=== PATIENT | female | born 1990 | race African-American/Black ===

== ENCOUNTER 2017-05-04 13:31 | Emergency (ER) | payer OTHER ==
[~2017-05-04] VITALS: Ht 162.6 cm; Wt 49.9 kg
[2017-05-04] MEDS ORDERED: NAPROSYN500 MG PO (15:05)
[2017-05-04] MEDS ORDERED: NORFLEX100 MG PO (15:05)
[2017-05-04 15:18] VITALS: BP 132/80
== END 2017-05-04 15:19 | disposition home or self-care (01) ==
LOC: ER 13:31
DX: S16.1XXA Strain of muscle, fascia and tendon at neck level, initial encounter (principal); J45.909 Unspecified asthma, uncomplicated; J04.0 Acute laryngitis; Z88.8 Allergy status to other drugs, medicaments and biological substances; X58.XXXA Exposure to other specified factors, initial encounter; Y93.89 Activity, other specified; Y92.89 Other specified places as the place of occurrence of the external cause; Y99.8 Other external cause status